=== PATIENT | male | born 1935 | race Caucasian/White ===

== ENCOUNTER 2016-12-27 11:13 | Inpatient (IN) | payer MEDICARE ==
[~2016-12-27] VITALS: Ht 190.5 cm; Wt 89.1 kg
--- NOTE | ~2016-12-27 | CO ---
Unit #: [id number] #: [id number] Patient: YANG VILLEGAS [id number] [address] [address] [id number] I MR#: [id number] NAME: YANG VILLEGAS ROOM: 313 Age: 81 Sex: M Admission Date: 12/29/2016 : 1935 Attending Physician: Angely Bolden M.D. Primary Care Physician: Kiran Frankel M.D. Consultation Date: 12/31/2016 CONSULTATION REPORT REASON FOR CONSULTATION Positive blood cultures. HISTORY OF PRESENT ILLNESS Mr. Villegas is a pleasant 81-year-old male with a past medical history significant for hypertension, hyperlipidemia, CVA, benign prostatic hypertrophy, peripheral arterial disease and chronic kidney disease who is being admitted for complaints of lower extremity weakness and tenderness, which has happened for the past week. States he has had more trouble walking while he was at home. Says that he had issues with his legs before in the past with swelling. Denies any gout or any previous surgical interventions to his legs. We are now being consulted for positive blood cultures with gram-positive cocci. The patient has currently been started on vancomycin. He was noted to have fever of 101.3 on the 6th. Fever seems to have resolved, and the patient is now with low-grade temps around 100 to 99.7. He is alert and oriented and clinically stable at this time. PAST MEDICAL HISTORY Significant for hypertension, hyperlipidemia, cerebrovascular accident x2, BPH, peripheral arterial disease, chronic kidney disease, carotid endarterectomy in the past. PAST SURGICAL HISTORY Left inguinal hernia repair, carotid endarterectomy, hydrocelectomy. SOCIAL HISTORY The patient denies any alcohol, tobacco or illicit drug use. FAMILY HISTORY Noncontributory. REVIEW OF SYSTEMS All negative except for those stated in the HPI. PHYSICAL EXAM GENERAL: Awake, alert and oriented. Sitting up in bed. VITAL SIGNS: Temperature is 99.7, heart rate 69, respirations 18, blood pressure 145/81. NEUROLOGIC: Alert and oriented. CARDIOVASCULAR: Regular rate. PULMONARY: Clear to auscultation. Nonlabored. GI: Soft, nontender. Positive bowel sounds. SKIN: Bilateral lower extremity erythema and edema, tenderness. No open Unit #: [id number] #: [id number] Patient: YANG VILLEGAS wounds. Dry, flaky toes. PERIPHERAL IV ACCESS: Clean, dry and intact. DIAGNOSTIC STUDIES DIAGNOSTIC IMAGES: Chest x-ray with cardiomegaly, elevation of left hemidiaphragm with atelectasis of the left base. Ultrasound of the kidneys - Echogenic likely reflecting some chronic medical renal disease. LABORATORY DATA: Chemistry - Glucose is 112, BUN 37, creatinine 1.4, sodium 137, potassium 4.2. Hematology - No CBC today. Yesterday's white count was 8.4. Blood cultures from December 30 drawn 15 minutes apart - Two of two with gram-positive cocci in clusters. Pending identification and sensitivity. ASSESSMENT 1. Gram-positive bacteremia versus contamination of unclear source. 2. Possibly bilateral lower extremity cellulitis. PLAN At this time will continue vancomycin. Will follow up identifications of cultures, as well as sensitivities. Unsure of source for bacteremia. The patient is without a pacemaker, a PICC line or a central line or any type of artificial devices, and he has no past surgical history, although bacteremia could be from possible lower extremity cellulitis. Will check a bilateral lower extremity venous Doppler ultrasound to rule out any type of DVT. Will ask pharmacy to continue dosing vancomycin. Will monitor creatinine closely while the patient is on vancomycin and will follow up on cultures. Temps seem to have improved and patient with no leukocytosis. Further recommendations dependent on the patient's course. As well, the patient will be seen by Dr. Carreon for further plan. Thank you for the consultation. Dictated by... Clara Wolfe APRN for Dea Wright/cameron TD: 12/31/2016 11:04 JOB #: [id number] CONSULTATION REPORT Page 1 of 1 X X CONSULTATION REPORT
--- NOTE | ~2016-12-27 | OR ---
Unit #: [id number] #: [id number] Patient: YANG VILLEGAS [id number] [address] [address] [id number] I MR#: [id number] NAME: YANG VILLEGAS ROOM: [facility] Date of Procedure: 01/01/2017 Admission Date: 12/29/2016 Surgeon: Ronnell Shahid M.D. : 1935 Attending Physician: Angely Bolden M.D. Primary Care Physician: Kiran Frankel M.D. OPERATIVE REPORT PRIMARY CARE PHYSICIAN Kiran Frankel M.D. PREOPERATIVE DIAGNOSES The patient has presented history of oropharyngeal dysphagia. His fairly modified swallow evaluation suggest possible matter in the esophagus. The patient has lot of pooling of food and secretions in his pharynx and vallecula on swallow evaluation. PROCEDURES PERFORMED 1. Upper gastrointestinal endoscopy and biopsy. 2. Endoscopic placement of Dobbhoff tube. POSTOPERATIVE DIAGNOSES 1. There was grade 1 distal erosive esophagitis. 2. Mild prepyloric antral nonerosive gastritis. 3. There was lot of pooling of secretions in vallecula and requiring frequent oropharyngeal suction. 4. 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 5. A Dobbhoff diverticulum was placed with its tip of the tube in the antrum confirmed endoscopically after some difficulty due to the Zenker's. RECOMMENDATIONS The patient will need a more permanent modality of enteral feeding and a PEG tube is indicated. In the meantime until we get the permit from the family and POA, he can be fed via the Dobbhoff tube. SEDATION USED MAC. DESCRIPTION OF PROCEDURE Following detailed explanation of the potential risks and complications of an upper endoscopy, namely perforation, bleeding, and complications related to sedation, the patient was brought to GI lab and laid in the supine position with head of the bed elevated. Lubricated tip of the Olympus video upper endoscope was passed through the bite block into the proximal esophagus under direct vision. The entire esophageal mucosa was examined and the patient was noted to have grade 1 distal erosive esophagitis. The scope was then advanced into the gastric cavity and the latter was insufflated. Mucosa of the fundus, body, and antrum was examined. Mild prepyloric antral erythema was noted indicating antral gastritis. Pylorus was intubated with visualization of the normal Unit #: [id number] #: [id number] Patient: YANG VILLEGAS duodenal bulb and second and third part of the duodenum. Upon withdrawal and retroflexion, incisura, cardia, and greater curve examined and biopsy obtained from the antrum for CLOtest. The scope was then withdrawn in the distal esophagus. The entire esophageal mucosa was examined all the way up to pharynx. The patient was noted to have extensive pooling of secretions in the both vallecula and posterior pharynx. These required frequent oropharyngeal suction during the procedure. A whiteboard Dobbhoff tube was then placed endoscopically into the antrum. There was some difficulty encountered and placing the tube because of presence of Zenker diverticulum. The tube was then anchored to the external nares. The scope was withdrawn. The patient returned to the recovery area. He tolerated the procedure without any postprocedure complications. Dictated by... Dea Ghosh TD: 01/01/2017 11:32 JOB #: [id number] OPERATIVE REPORT Page 1 of 1 X Ronnell Shahid MD X PROCEDURE OPERATIVE NOTE
--- NOTE | ~2016-12-27 | CO ---
Unit #: [id number] #: [id number] Patient: YANG VILLEGAS [id number] [address] [place], [place] [address] [id number] I MR#: [id number] NAME: YANG VILLEGAS ROOM: 313 Age: 81 Sex: M Admission Date: 12/29/2016 : 1935 Attending Physician: Angely Bolden M.D. Primary Care Physician: Kiran Frankel M.D. Consultation Date: 12/30/2016 CONSULTATION REPORT REASON FOR CONSULTATION Oropharyngeal dysphagia. HISTORY OF PRESENT ILLNESS The patient has been found to have a significant problem with pooling of food in the (1) posterior pharynx and also a suggestion of a narrow esophagus on a modified barium swallow. He was, in fact, admitted 3 days ago with weakness of lower extremities and is still quite frail and weak. In fact, on examination he seems somewhat forgetful. PAST MEDICAL HISTORY His past medical history is significant for history of stroke. In fact, the patient was admitted in July of 2014 with rhabdomyolysis and CVA. He also has a history of hypertension, hyperlipidemia, stroke in the left middle cerebral artery territory, peripheral arterial disease status post carotid endarterectomy, chronic kidney disease stage 3 and benign prostatic hypertrophy. The patient has also been found to be in atrial fibrillation in the hospital. PAST SURGICAL HISTORY Previous surgeries included carotid endarterectomy, surgery for a hydrocele, as well as left inguinal hernia repair. SOCIAL HISTORY He does not smoke, drink alcohol and uses a walker to ambulate. His POA is Lashaun Skelley. CURRENT MEDICATIONS Norvasc, Cozaar, Flomax, Colace, vitamin D3. ALLERGIES Atorvastatin. REVIEW OF SYSTEMS A detailed review of organ systems does not reveal any recent weight loss. No history of fevers, chills or rigors. Also, there is no history of syncope. There is history of weakness of lower extremities. No history of cough, expectoration or hemoptysis. No history of dysuria, hematuria or polyuria. No focal seizures. No history of overt GI bleed in the form of the hematemesis, melena or hematochezia. PHYSICAL EXAMINATION GENERAL: On examination, he is awake and somewhat lethargic. He is able to respond to all commands but is quite slow (2) . Unit #: [id number] #: [id number] Patient: YANG VILLEGAS VITAL SIGNS: His temperature is 99.8, pulse 80 per minute, respiratory rate 18, blood pressure 148/76. He weighs 198 pounds. Baseline weight is about the same. GENERAL: He has mild pallor, there being no icterus, lymphadenopathy. Grade 1 pitting peripheral edema. CARDIOVASCULAR: Examination reveals atrial fibrillation. RESPIRATORY: Auscultation of the lungs - Bilaterally diminished with good air entry. ABDOMEN: The abdomen is soft, obese and nontender. The liver and spleen are not palpable. Bowel sounds are normal. DIAGNOSTIC STUDIES LABORATORY: Lab evaluation shows a normal white count of 8. Hemoglobin is 11 with normochromic, normocytic indices. Platelet count is 134. INR is 1.2. Serum chemistry shows a BUN and creatinine of 31 and 1.6. Sodium and potassium are normal. Albumin is 3.3, and LFTs are normal. The patient's speech and swallow evaluation suggests the possibility of pooling of food in the pharynx, most likely from oropharyngeal dysphagia, as well as possibility of esophageal stricture or reflux. CLINICAL IMPRESSION 1. Patient with oropharyngeal dysphagia and possibly mechanical dysphagia as a result of reflux or stricture. Needs a diagnostic endoscopy. 2. Background problems with atrial fibrillation, stroke, hypertension and hyperlipidemia. An upper endoscopy will be performed later today. The pros and cons of the procedure and potential risks and complications were discussed with the patient, and he was reassured. Thank you for asking me to see this pleasant gentleman. I appreciate the consult. Dictated by... Dea Ghosh/cameron TD: 12/31/2016 14:24 JOB #: [id number] CONSULTATION REPORT Page 1 of 1 X Ronnell Shahid MD CONSULTATION REPORT
--- NOTE | ~2016-12-27 | US140 ---
[facility] A Service of [facility] RADIOLOGY TEXT RESULTS PATIENT: YANG VILLEGAS LOCATION: [facility] 313-01 : [birth year] UNIT #: [id number] AGE: [address]: Angely Bolden MD SEX: M ORDER DR: [id number] [facility] [address] [place], [place] [address] [id number] I MR#: [id number] Acc #: [id number] NAME: YANG VILLEGAS : 1935 SEX: M STUDY DATE/TIME: 01/02/2017 14:44 UNIT: [address] ROOM: [facility] STUDY DESCRIPTION: US UE Veins Unilat or Ltd Stdy Attending Physician: Angely Bolden M.D. Ordering Physician: Angely Bolden M.D. Primary Care Physician: Kiran Frankel M.D. MEDICAL IMAGING REPORT This report is preliminary unless electronic signature is present EXAM Right upper extremity venous duplex, 01/02/2017 HISTORY Right upper extremity pain and edema for 3 days. Evaluate for deep vein thrombosis. FINDINGS Eaton-scale images of the right upper extremity were obtained as well as Doppler waveform spectral analysis and color flow Doppler imaging. There is normal blood flow and compressibility in the right internal jugular vein as well as the right subclavian, axillary, brachial, cephalic and basilic veins. There is no evidence of deep vein thrombosis in the right upper extremity. IMPRESSION Negative right upper extremity venous duplex with no evidence of deep vein thrombosis. Dictated by... Mike Burns M.D. THIS IS AN ELECTRONICALLY VERIFIED REPORT Mike Burns M.D. at 01/03/2017 7:18 AM JSE/allen TD: 01/02/2017 21:03 JOB #: [id number] MEDICAL IMAGING REPORT Page 1 of 1 COPY
--- NOTE | ~2016-12-27 | EKG ---
PATIENT: YANG VILLEGAS UNIT #: [id number] Ventricular Rate: 137 BPM Atrial Rate: 159 BPM QRS Duration: 82 ms Q-T Interval: 294 ms QTC Calculation(Bezet): 443 ms Calculated R Hastings: 41 degrees Calculated T Hastings: 33 degrees Diagnosis Line: Atrial fibrillation with rapid ventricular Diagnosis Line: response Diagnosis Line: Abnormal ECG Diagnosis Line: When compared with ECG of 28-JUL-2014 16:59, Diagnosis Line: Atrial fibrillation has replaced Sinus rhythm Diagnosis Line: ST no longer elevated in Inferior leads Diagnosis Line: Nonspecific T wave abnormality no longer evident Diagnosis Line: in Lateral leads Diagnosis Line: Confirmed by CANELO RUTHERFORD MD ([id number]) on 12/31/2016 Diagnosis Line: 10:53:57 PM INTERPRETING MD: KRISH LANE
--- NOTE | ~2016-12-27 | CO ---
Unit #: [id number] #: [id number] Patient: YANG VILLEGAS [id number] [address] [place], [place] [address] [id number] I MR#: [id number] NAME: YANG VILLEGAS ROOM: 313 Age: 81 Sex: M Admission Date: 12/27/2016 : 1935 Attending Physician: Angely Bolden M.D. Primary Care Physician: Kirna Frankel M.D. Consultation Date: 12/28/2016 CONSULTATION REPORT REASON FOR CONSULTATION Acute renal failure. HISTORY OF PRESENT ILLNESS This is an 81-year-old white male with a history of CKD, 3. His baseline creatinine is approximately 1.3. He is followed closely by my partner, Dr. Rey Teresa. The patient has a history of CVA approximately 2 years ago. Since that time, he has had some weakness, however, he notes that his weakness has dramatically worsened over the past couple of weeks, mainly of the bilateral legs. He states that when he is having just to stand or use his legs, they feel very weak and they are unable to support his weight. He describes it "wobbly." He has not had any falls. He has no paresthesias or pain in the extremities. No coldness or temperature change of extremities. No recent illness. Nothing makes the weakness better and nothing makes it worse. His blood pressure has been at goal. At the time of arrival, he was found to have acute renal failure with a creatinine of 1.8. He has been hydrated overnight and his creatinine has now improved to 1.5. PAST MEDICAL HISTORY 1. CKD, stage 3 with a baseline creatinine of 1.3. 2. CVA in 2014. 3. Hypertension. 4. Hyperlipidemia. 5. Peripheral artery disease. HOME MEDICATIONS Norvasc, Cozaar, Flomax, Colace, vitamin D3. ALLERGIES Atorvastatin. SOCIAL HISTORY He does not smoke or drink. He lives with a friend. REVIEW OF SYSTEMS No fevers, chills, or night sweats. No syncope or seizure like activity. No chest pain or palpitations. No shortness of air, cough, congestion, or sputum production. Mild dyspnea on exertion. No abdominal pain, nausea, vomiting, diarrhea, melena, bright red blood per rectum. No dysuria, urgency, or frequency. No new rashes. No joint pain. No polyuria, no polydipsia. PHYSICAL EXAMINATION Unit #: [id number] #: [id number] Patient: YANG VILLEGAS VITAL SIGNS: Blood pressure 141/79, heart rate of 80, respiratory rate of 18, he is afebrile. GENERAL: He is alert and oriented, pleasant, well kempt, in no acute distress. HEENT: Extraocular movements are intact. No scleral icterus. NECK: Supple with no masses and no JVD noted. HEART: Regular S1, S2 with a very slight systolic ejection murmur heard at the left sternal border. No rubs or gallops appreciated. LUNGS: Clear to auscultation bilaterally with good air movement. No rales, rhonchi, or wheezes appreciated. ABDOMEN: Soft, nontender, nondistended with normal bowel sounds. EXTREMITIES: Warm to touch. No edema. They are dry with intact pulses. DIAGNOSTIC STUDIES LABORATORY RESULTS: Reviewed, white count is 7, hemoglobin is 10, platelets 132. Sodium 136, potassium 4.7, bicarb 28, creatinine 1.5, calcium 8.3. IMAGING STUDIES: Chest x-ray shows left hemidiaphragm elevation, which is chronic and some mild atelectasis. ASSESSMENT 1. Acute kidney injury. 2. Chronic kidney disease, stage 3. 3. Weakness. 4. Hypertension. 5. Anemia of chronic disease. DISCUSSION AND PLAN At this time, we will continue to hydrate him as he does tolerate greater than 50% of his dinner. We will go ahead and discontinue his IV fluids to prevent from any overload. We will check a baseline renal ultrasound. We will continue to monitor electrolytes closely and recommend we will dose all medications to GFR less than 60. For his leg pain, we will check a folate and B12. We would also consider Vascular Surgery consult if his weakness continues, to rule out any vascular insufficiency as he does have a history of peripheral artery disease. For his anemia, we will go ahead and screen for iron deficiency and treat with Aranesp and Venofer as indicated. We will continue to monitor electrolytes and volume closely. Thank you again for this referral. Dictated by... Ceci Campo M.D. AMANDA/diego TD: 12/29/2016 02:13 JOB #: [id number] Unit #: [id number] #: [id number] Patient: YANG VILLEGAS CONSULTATION REPORT Page 1 of 1 X Ceci Campo MD CONSULTATION REPORT
--- NOTE | ~2016-12-27 | CR72 ---
[facility] A Service of [facility] RADIOLOGY TEXT RESULTS PATIENT: YANG VILLEGAS LOCATION: [facility] 313-01 : [birth year] UNIT #: [id number] AGE: [address]: Lulu Sun MD SEX: M ORDER DR: [id number] [facility] [address] [facility] [place], [place] [address] [id number] MR#: [id number] Acc #: [id number] NAME: YANG VILLEGAS : 1935 SEX: M STUDY DATE/TIME: 12/27/2016 12:39 UNIT: [facility] ROOM: STUDY DESCRIPTION: CR Chest Single View Portable Attending Physician: Jese Manning M.D. Ordering Physician: Jese Manning M.D. Primary Care Physician: Kiran Frankel M.D. MEDICAL IMAGING REPORT This report is preliminary unless electronic signature is present EXAM Frontal chest, 12/27/2016. INDICATION 81-year-old male with shortness of air and bilateral leg pain and weakness for 2 weeks. History of stroke. "Leaky valve." TECHNIQUE Frontal chest compared with 07/28/2014. FINDINGS Cardiac silhouette stable. The aorta is tortuous. Vascularity is within normal limits. There is some atelectasis in the right lung base. Chronic elevation of the left hemidiaphragm and volume loss on the left. No pneumothorax. IMPRESSION Chronic elevation of the left hemidiaphragm with associated volume loss and atelectasis in the left lung base. Mild right basilar atelectasis. No significant change. Dictated by... Isauro Hampton M.D. THIS IS AN ELECTRONICALLY VERIFIED REPORT Isauro Hampton M.D. at 12/27/2016 5:17 PM César TD: 12/27/2016 15:22 JOB #: [id number] [facility] A Service [facility] RADIOLOGY TEXT RESULTS PATIENT: YANG VILLEGAS LOCATION: [facility] 313-01 : [birth year] UNIT #: [id number] AGE: [address]: Lulu Sun MD SEX: M ORDER DR: MEDICAL IMAGING REPORT Page 1 of 1 COPY
--- NOTE | ~2016-12-27 | OR ---
Unit #: [id number] #: [id number] Patient: YANG VILLEGAS [id number] [address] [place], [place] [address] [id number] I MR#: [id number] NAME: YANG VILLEGAS ROOM: [facility] Date of Procedure: 01/03/2017 Admission Date: 12/29/2016 Surgeon: Ronnell Shahid M.D. : 1935 Attending Physician: Angely Bolden M.D. Primary Care Physician: Kiran Frankel M.D. OPERATIVE REPORT PRIMARY CARE PHYSICIAN Kiran Frankel M.D. PREOPERATIVE DIAGNOSIS High-grade oropharyngeal dysphagia. PROCEDURES PERFORMED Upper gastrointestinal endoscopy and a PEG placement. POSTOPERATIVE DIAGNOSIS Uncomplicated placement of the PEG tube. RECOMMENDATIONS Please see the chart for postoperative care of the PEG site and feeding instructions. SEDATION USED MAC. DESCRIPTION OF PROCEDURE Following detailed explanation of the potential risks and complications of an upper endoscopy and a PEG placement namely perforation, bleeding, and complication related to sedation, the patient was brought to GI lab and laid in the supine position with head of the bed elevated. Sedation using MAC was given. Lubricated tip of the Olympus video upper endoscope was passed through the bite block into the proximal esophagus under direct vision. The entire esophageal mucosa was examined and appeared normal. Z-line was nicely demarcated, there being no esophagitis or hiatus hernia. The scope was then advanced into the gastric cavity and the latter was insufflated. Mucosa of the fundus, body, and antrum was examined and appeared unremarkable. Pylorus was intubated with visualization of the normal duodenal bulb and second and third part of the duodenum. Upon withdrawal and retroflexion; incisura, cardia, and greater curve was examined and no additional findings were noted. Using transillumination and finger indentation, a prospective PEG site was then identified. The area was cleaned and draped with Betadine and 1% lidocaine infiltrative anesthesia was given. A small stab incision was made with a scalpel. Using Seldinger technique, guidewire was placed in the gastric cavity. The latter was then grasped using a polypectomy snare and brought out through the oral cavity. A 20-Vietnamese PEG tube was reloaded over the guidewire and brought out through the stab incision. Appropriate feeding attachments and securing device were applied. Relook endoscopy showed Unit #: [id number] #: [id number] Patient: YANG VILLEGAS excellent position in the inner mushroom of the PEG tube. The scope was withdrawn and the patient returned to the recovery area. He tolerated the procedure without any postprocedure complications. Dictated by... Dea Ghosh/diego TD: 01/03/2017 13:53 JOB #: [id number] Maggie Brewer M.D. OPERATIVE REPORT Page 1 of 1 X Ronnell Shahid MD X PROCEDURE OPERATIVE NOTE
--- NOTE | ~2016-12-27 | CR113 ---
[facility] A Service of [facility] RADIOLOGY TEXT RESULTS PATIENT: YANG VILLEGAS LOCATION: [facility] : 33 UNIT #: [id number] AGE: [address]: Angely Bolden MD SEX: M ORDER DR: [id number] [place] [id number] [facility]. [place], [place] [address] [id number] I MR#: [id number] Acc #: [id number] NAME: YANG VILLEGAS : 1935 SEX: M STUDY DATE/TIME: 01/03/2017 10:57 UNIT: [address] ROOM: [facility] STUDY DESCRIPTION: CR Finger 2 View 4Th Rt Attending Physician: Angely Bolden M.D. Ordering Physician: Angely Bolden M.D. Primary Care Physician: Kiran Frankel M.D. MEDICAL IMAGING REPORT This report is preliminary unless electronic signature is present EXAM Right fourth finger, 2 views, 01/03/2017, 1057 hours. CLINICAL HISTORY Patient has had CVA with weakness and inability to fully extend hand and fingers on the right. Patient has swelling and pain for 1 day with no known injury. COMPARISON None FINDINGS AP and lateral views of the fourth finger demonstrate diffuse soft tissue swelling with no fracture. There is mild spurring at the PIP and DIP joints consistent with osteoarthritis. 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 There is no fracture, foreign body or soft tissue gas. Dictated by... Michelle Mcneil M.D. THIS IS AN ELECTRONICALLY VERIFIED REPORT Michelle cMneil M.D. at 01/04/2017 3:27 PM JAIME/tricia TD: 01/03/2017 16:54 JOB #: [id number] [facility] A Service of [facility] RADIOLOGY TEXT RESULTS PATIENT: YANG VILLEGAS LOCATION: [facility] : 33 UNIT #: [id number] AGE: [address]: Angely Bolden MD SEX: M ORDER DR: MEDICAL IMAGING REPORT Page 1 of 1 COPY
--- NOTE | ~2016-12-27 | CR72 ---
[facility] A Service of [facility] RADIOLOGY TEXT RESULTS PATIENT: YANG VILLEGAS LOCATION: [facility] 313-01 : 33 UNIT #: [id number] AGE: [address]: Angely Bolden MD SEX: M ORDER DR: [id number] [facility] [address]. [place], [place] [address] [id number] I MR#: [id number] Acc #: [id number] NAME: YANG VILLEGAS. : 1935 SEX: M STUDY DATE/TIME: 01/03/2017 17:21 UNIT: [address] ROOM: [facility] STUDY DESCRIPTION: CR Chest Single View Portable Attending Physician: Angely Bolden M.D. Ordering Physician: Angely Bolden M.D. Primary Care Physician: Kiran Frankel M.D. MEDICAL IMAGING REPORT This report is preliminary unless electronic signature is present EXAM AP portable chest, 01/03/2017 at 1721. HISTORY Shortness of breath. Pneumonia. Symptoms began 1 month ago. COMPARISON AP portable chest 12/30/2016. FINDINGS There is asymmetric elevation of the left hemidiaphragm with probable passive left basilar atelectasis, but no definite acute airspace disease or consolidation is seen. Stable mild cardiac enlargement. No pleural effusion, pneumothorax, or acute osseous abnormalities are identified. IMPRESSION 1. Stable elevation left hemidiaphragm with passive left basilar atelectasis. 2. Stable mild cardiac enlargement. 3. No new or acute chest findings compared to 12/30/2016. Dictated by... Katherine Almendarez M.D. THIS IS AN ELECTRONICALLY VERIFIED REPORT Katherine Almendarez M.D. at 01/06/2017 8:38 AM LLH/jake TD: 01/04/2017 11:39 JOB #: [id number] MEDICAL IMAGING REPORT Page 1 of 1 COPY
--- NOTE | ~2016-12-27 | US84 ---
[id number] [facility] [address] [place], [place] [address] [id number] I MR#: [id number] Acc #: [id number] NAME: YANG VILLEGAS : 1935 SEX: M STUDY DATE/TIME: 12/31/2016 14:13 UNIT: C3A PCU ROOM: [facility] STUDY DESCRIPTION: US LE Veins Complete Naif Stdy Attending Physician: Angely Bolden M.D. Ordering Physician: Angely Bolden M.D. Primary Care Physician: Kiran Frankel M.D. MEDICAL IMAGING REPORT This report is preliminary unless electronic signature is present EXAM Bilateral lower extremity venous duplex, 12/31/2016 HISTORY Bilateral lower extremity pain for 2 years with lower extremity edema. Symptoms have worsened in the last 2 days. Evaluate for deep vein thrombosis. TECHNIQUE Venous ultrasound examination of both lower extremities was performed using grayscale, spectral Doppler and color flow Doppler imaging. FINDINGS The examination is negative. There is no evidence of deep venous thrombus from the groin to the lower calf bilaterally. Visualized greater saphenous veins are also patent. IMPRESSION Negative examination. No evidence of lower extremity deep venous thrombosis. Dictated by... Mike Burns M.D. THIS IS AN ELECTRONICALLY VERIFIED REPORT Mike Burns M.D. at 01/01/2017 2:37 PM JES/allen TD: 12/31/2016 20:58 JOB #: [id number] MEDICAL IMAGING REPORT Page 1 of 1 COPY
--- NOTE | ~2016-12-27 | DS ---
Unit #: [id number] #: [id number] Patient: YANG VILLEGAS [id number] [address] [place], [place] [address] [id number] I MR#: [id number] NAME: YANG VILLEGAS ROOM: 313 Age: 81 Sex: M Admission Date: 12/29/2016 : 1935 Discharge Date: 01/04/2017 Attending Physician: Angely Bolden M.D. Primary Care Physician: Kiran Frankel M.D. DISCHARGE SUMMARY PRINCIPAL DISCHARGE DIAGNOSES 1. Acute kidney injury, improved. 2. History of chronic kidney disease. 3. Bacteremia with Staph coagulase negative, most likely contamination. 4. PEG placement. 5. Atrial fibrillation with rapid ventricular response, now in normal sinus rhythm. 6. Bilateral lower extremity weakness. 7. B12 deficiency. 8. Right hand arthritis. HOSPITAL COURSE This is an 81-year-old male with multiple medical problems who was admitted on 12/27/2016 with lower extremity weakness. In the emergency room, on his labs he was found to be in acute renal failure with creatinine of 1.8, temperature of 99.3. He was treated with IV antibiotics with vancomycin and cefazolin. Seen by the infectious disease. He was also seen in renal consult by Dr. Padilla. He had a GI consult with Dr. Shahid for a PEG placement due to the difficulty in swallowing and eating. He had bacteremia with coagulase negative Staph which was found out to be contamination. He had atrial fibrillation with rapid ventricular rate, seen by the cardiology. He is in normal sinus rhythm. The patient is being discharged home. The patient is stable at this time to be discharged home for further management. CONSULTATION 1. Cardiology - Dr. Barajas. 2. ID - Dr. aCrreon. 3. GI - Dr. Shahid. PROCEDURE PEG placement. DISCHARGE MEDICATIONS 1. Eliquis 2.5 mg twice daily. 2. Amlodipine 5 mg daily. 3. Metoprolol 50 mg twice daily. 4. Colace 200 mg twice daily. 5. Chlorthalidone 12.5 mg daily. 6. Acetaminophen p.r.n., 650 q.6. 7. Flomax 0.4 mg p.o. at bedtime. 8. Losartan 25 mg daily. 9. Vitamin D 5000 units daily. 10. Vitamin B12 1000 mcg daily. Unit #: [id number] #: [id number] Patient: YANG VILLEGAS 11. Free water via PEG 200 mL q.4. Discharge to [facility]. CONDITION AT DISCHARGE Stable. Dictated by... Dea Russ/marcelino TD: 01/04/2017 12:14 JOB #: [id number] DISCHARGE SUMMARY Page 1 of 1 X Rk Gonzales MD X DISCHARGE SUMMARY
--- NOTE | ~2016-12-27 | US77 ---
[facility] A Service [facility] RADIOLOGY TEXT RESULTS PATIENT: YANG VILLEGAS LOCATION: [facility] 313- : 33 UNIT #: [id number] AGE: [address]: Angely Bolden MD SEX: M ORDER DR: [id number] [facility] [address]. [place], [place] [address] [id number] I MR#: [id number] Acc #: [id number] NAME: YANG VILLEGAS. : 1935 SEX: M STUDY DATE/TIME: 12/29/2016 9:16 UNIT: [address] ROOM: [facility] STUDY DESCRIPTION: US Kidney Bilateral Complete Attending Physician: Angely Bolden M.D. Ordering Physician: Ceci Campo M.D. Primary Care Physician: Kiran Frankel M.D. MEDICAL IMAGING REPORT This report is preliminary unless electronic signature is present EXAM Renal ultrasound INDICATION Acute kidney injury. TECHNIQUE Eaton-scale and color Doppler sonographic images were obtained through the kidneys and bladder. FINDINGS I do think the kidneys appear somewhat echogenic likely reflecting chronic medical renal disease, although there is no cortical thinning. No hydronephrosis is seen on either side. No solid masses are identified although the patient is noted to have a simple-appearing right renal cyst measuring up to 5.1 x 6.4 x 5.7 cm which is probably not significantly changed when compared to June 2015. Bladder appears unremarkable. IMPRESSION 1. I think overall the patient's kidneys appear somewhat echogenic likely reflecting some chronic medical renal disease. However, no cortical thinning or hydronephrosis is seen. 2. Right renal cyst. Dictated by... Alexa Tesfaye M.D. THIS IS AN ELECTRONICALLY VERIFIED REPORT Alexa Tesfaye M.D. at 12/29/2016 10:25 AM LI/anton [facility] A Service [facility] RADIOLOGY TEXT RESULTS PATIENT: YANG VILLEGAS LOCATION: [facility] 313-01 : 33 UNIT #: [id number] AGE: [address]: Angely Bolden MD SEX: M ORDER DR: TD: 12/29/2016 09:45 JOB #: [id number] MEDICAL IMAGING REPORT Page 1 of 1 COPY
--- NOTE | ~2016-12-27 | CR71 ---
[facility] A Service of [facility] RADIOLOGY TEXT RESULTS PATIENT: YANG VILLEGAS LOCATION: [facility] 313-01 : 33 UNIT #: [id number] AGE: [address]: Angely Bolden MD SEX: M ORDER DR: [id number] [facility] [address] [place], [place] [address] [id number] I MR#: [id number] Acc #: [id number] NAME: YANG VILLEGAS : 1935 SEX: M STUDY DATE/TIME: 12/30/2016 6:51 UNIT: [address] ROOM: [facility] STUDY DESCRIPTION: CR Chest Single View Attending Physician: Angely Bolden M.D. Ordering Physician: Maggie Brewer M.D. Primary Care Physician: Kiran Frankel M.D. MEDICAL IMAGING REPORT This report is preliminary unless electronic signature is present EXAM Portable chest 12/30/2016 HISTORY Cough, fever, leg weakness, shortness of breath, benign essential hypertension beginning 12/25/2016. FINDINGS There is mild cardiac enlargement. There is elevation of the left hemidiaphragm with atelectasis at the lung bases. Lungs are otherwise clear. There are no pleural effusions. IMPRESSION Cardiomegaly. Elevation left hemidiaphragm with atelectasis at the lung bases. No change compared with 12/27/2016. Dictated by... Mike Burns M.D. THIS IS AN ELECTRONICALLY VERIFIED REPORT Mike Burns M.D. at 12/31/2016 7:13 AM JES/anton TD: 12/30/2016 07:15 JOB #: [id number] MEDICAL IMAGING REPORT Page 1 of 1 COPY
--- NOTE | ~2016-12-27 | A ---
[facility] Nutrition Therapy DATE: 01/01/17 Patient: YANG VILLEGAS Physician: TOREY Address: [facility] Room/Bed: [address] [place] [address], Zip: [place] [address] Admit Date: 12/29/16 Date of : 33 Height: 6 3 Weight: 198 90 NUTRITIONAL ASSESSMENT: REASON: PT SEEN FOR ENTERAL NUTRITION SUPPORT ASSESSMENT PT IS 81 Y.O. MALE ADMITTED FOR LEG WEAKNESS, AMS PMH: HTN, HLD, CVA X 2, PAD, BPH, CKD STAGE 3, AFIB Anthropometrics: 6'3", WT: 203# (PER PT) (92 KG), BMI: 25.4 Labs: GLU: 116, BUN: 39, ALB: 3.3, GFR: 55.6 Meds: NACL, VITAMIN D, COLACE, CYANOCOBALAMIN I/O & Bowel function: 40/900 Skin Integrity: CRUSTED DRY SKIN TO BLE & FEET; BLE CELLULITIS Estimated Nutrition Needs: 9812-3757 KCAL (20-25 KCAL/KG BW) 82-110 G PRO (0.9-1.2 G PRO/KG BW) FLUIDS CONSISTENT W/KCAL NEEDS OR MANAGE PER MD Assessment: CHART REVIEWED AND EVENTS NOTED. PT SEEN FOR ENTERAL NUTRITION SUPPORT. PT SLEEPY AT TIME OF VISIT REPORTING FAIR/GOOD PO INTAKE PRIOR TO ADMIT. FAMILY AT BEDSIDE REPORTS PT TO HAVE GOOD PO INTAKE AND APPETITE BUT NOTING PT WOULD CHOKE AND COUGH OCCASIONALLY AFTER EATING. PT AND FAMILY DENY PT HAS LOST ANY WEIGHT. NO WEIGHT LOSS NOTED IN [facility]. (WEIGHT GAIN NOTED). PER RN AND CHART, SPAR CAP BEVELER FOLLOWING AND DEEMS PT NOT APPROPRIATE FOR DIET ADVANCEMENT 2' RISK OF ASPIRATION & DYSPHAGIA NOTED. PLANS IN PLACE FOR EGD AND PEG PLACEMENT TODAY 01/01/17 AND THEN BEGIN ENTERAL NUTRITION SUPPORT OF JEVITY 1.2 @ 20 ML, ADVANCE TO GOAL RATE OF 50 ML/HR. PT ESTRELLITAENLY HAS DHT IN PLACE. PT AND FAMILY REPORTED NO DIET QUESTIONS AT THIS TIME. RD TO FOLLOW. SEE RECOMMENDATIONS BELOW. Dx: INADEQUATE ORAL INTAKE R/T RISK OF ASPIRATION, DYSPHAGIA NOTED AEB SPAR CAP BEVELER EVAL, FAMILY REPORT ABOVE, PEG TUBE PLACEMENT SCHEDULED, CURRENT NPO STATUS. Intervention: 1. NPO 2. PEG PLACEMENT SCHEDULED Monitoring, Evaluation and Goals: 1. ENTERAL NUTRITION; ONCE INITIATED, PROVIDE >80% TOTAL VOLUME X 24 HOURS 2. WEIGHTS; PROMOTE WEIGHT MAINTENANCE; PREVENT WEIGHT LOSS 3. LABS; WNL [facility] Nutrition Therapy DATE: 01/01/17 Patient: YANG Pérez BAKARI Physician: TOREY Address: [address] [place] [address] Room/Bed: [address] [place] [address], Zip: [place] [address] Admit Date: 12/29/16 Date of : 33 Height: 6 3 Weight: 198 90 MONITOR: -WEIGHTS -TF INITIATION/GOAL/RESIDUALS -SPAR CAP BEVELER RE-EVAL? Recommendations: 1. ONCE MEDICALLY FEASIBLE, BEGIN ENTERAL NUTRITION SUPPORT OF JEVITY 1.5 @ 20 ML/HR, ADVANCE 10 q 6 HOURS TO GOAL RATE OF 55 ML/HR -PROVIDES 1980 KCAL, 84 G PRO, 1003 ML FREE H20 ADD FREE H20 FLUSHES OF 200 ML q 4 HOURS TO MEET PT'S CURRENT ESTIMATED FLUID NEEDS OR MANAGE PER MD 2. MONITOR FOR SIGNS OF ENTERAL NUTRITION INTOLERANCE. ELEVATE HOB 30-45 DEGREES DURING ENTERAL NUTRITION ADMINISTRATION 2. CONTINUE SPAR CAP BEVELER TO FOLLOW FOR SAFE SWALLOW RE-EVALUATION RD WILL F/U PER PROTOCOL PT IS MODERATELY COMPROMISED Respectfully, HORACE SCHMITZ MS, RD, LD Food and Nutritional Services [facility] cc: client file
--- NOTE | ~2016-12-27 | CO ---
Unit #: [id number] #: [id number] Patient: YANG VILLEGAS [id number] [address] [address] [id number] I MR#: [id number] NAME: YANG VILLEGAS ROOM: 313 Age: 81 Sex: M Admission Date: 12/27/2016 : 1935 Attending Physician: Angely Bolden M.D. Primary Care Physician: Kiran Frankel M.D. Consultation Date: 12/30/2016 CONSULTATION REPORT REASON FOR CONSULTATION Atrial fibrillation. HISTORY OF PRESENT ILLNESS This is an 81-year-old male with a prior history of hypertension, hyperlipidemia, CVA, benign prostate hypertrophy, peripheral artery disease, chronic kidney disease, and an echo in August 2014 which showed a PFO, mild AVR, and LVEF of 50% to 55%. He was admitted to the hospital with lower extremity weakness, altered mental status, and acute kidney injury. Yesterday, he experienced atrial fibrillation with a rapid ventricular rate of 130s to 140s. He was started on Lopressor and Cardiology was consulted. Today, he is in normal sinus rhythm with a rate in the 80s. He denies chest pain or palpitations. PAST MEDICAL HISTORY 1. Hypertension. 2. Hyperlipidemia. 3. Cerebrovascular accident x2. 4. Benign prostatic hypertrophy. 5. Peripheral artery disease. 6. Chronic kidney disease. 7. Carotid endarterectomy in the past. 8. Echocardiogram in 2014 showed a PFO, mild AR, and LVEF of 50% to 55%. PAST SURGICAL HISTORY 1. Left inguinal hernia repair. 2. Carotid endarterectomy. 3. Hydrocelectomy. SOCIAL HISTORY Patient denies tobacco, alcohol use, or illicit drug use. He uses a walker to ambulate. His power of insurance attorney is Lashaunsegundo Ulloa. FAMILY HISTORY He denies a family history of premature coronary artery disease. REVIEW OF SYSTEMS A 10-point review of systems was conducted and is otherwise negative except for what was stated in the HPI. PHYSICAL EXAMINATION VITAL SIGNS: Temperature 101.3 max, heart rate 80, respiratory rate 18, and blood pressure 112/64. Unit #: [id number] #: [id number] Patient: YANG VILLEGAS HEENT: Head is atraumatic and normocephalic. Pupils are equal and reactive to light. Mucous membranes are moist and intact. NECK: Supple. No thyromegaly. No JVD. LUNGS: Clear to auscultation. Nonlabored respirations. CARDIOVASCULAR: S1 and S2, regular rate and rhythm. ABDOMEN: Soft, nontender, and nondistended. Bowel sounds are active. EXTREMITIES: Pulses are palpable. Trace pedal edema. No cyanosis. NEUROLOGIC: Arouses and answers questions appropriately. Moves all extremities equally and follows commands without difficulty. DIAGNOSTIC STUDIES LABORATORY: Sodium 135, potassium 4.3, chloride 101, BUN 31, creatinine 1.6, and glucose 133. Hemoglobin 11, hematocrit 32.4, white blood cell count 8.4, and platelets 134,000. Troponin less than 0.04 and TSH 1.43. IMAGING: Chest x-ray showed cardiomegaly with elevation of left hemidiaphragm and bibasilar atelectasis. No change compared with December 27, 2016. CARDIOLOGY: EKG showed atrial fibrillation with rapid ventricular rate of 134. ASSESSMENT 1. Paroxysmal atrial fibrillation with rapid ventricular rate, now normal sinus rhythm. 2. Bilateral lower extremity weakness. 3. Acute kidney injury. 4. Microcytic anemia. 5. Hypertension. 6. Hyperlipidemia. 7. History of cerebrovascular accident. 8. Peripheral artery disease, status post carotid endarterectomy. 9. Benign prostate hypertrophy. 10. Ejection fraction of 50% to 55% with mild aortic regurgitation and patent foramen ovale per echocardiogram in 2014. PLAN He is currently in normal sinus rhythm. We will continue the beta amos b.i.d. Add parameters to hold for heart rate less than 60 or systolic blood pressure less than 100. His CHADS2-VASc score is 6. He will need to be anticoagulated. In light of his renal insufficiency, we will start Eliquis 5 mg p.o. b.i.d. Echocardiogram results pending. We will discontinue his Aggrenox. Thank you for asking us to see this patient. We appreciate the consult. Dictated by... Lashaun Perez APRN for [employer] Dea Plascencia TD: 12/30/2016 15:51 JOB #: [id number] Unit #: [id number] #: [id number] Patient: YANG VILLEGAS CONSULTATION REPORT Page 1 of 1 X X CONSULTATION REPORT
--- NOTE | ~2016-12-27 | HP ---
Unit #: [id number] #: [id number] Patient: YANG VILLEGAS [id number] [address] [address] [id number] MR#: [id number] NAME: YANG VILLEGAS ROOM: Age: 81 Sex: M Admission Date: 12/27/2016 : 1935 Attending Physician: Jese Manning M.D. Primary Care Physician: Kiran Frankel M.D. HISTORY AND PHYSICAL CHIEF COMPLAINT Weak in the legs. HISTORY OF PRESENT ILLNESS The patient is an 81-year-old male with a past medical history of hypertension, hyperlipidemia, cerebrovascular accident, BPH and peripheral arterial disease, who presented to the emergency department for evaluation of the above. The patient states that he has been getting progressively weak in the legs. He states that it has possibly been going on for the past couple of days to a week or two. He states that his legs "get wobbly when he stands up." He denies any falls. He denies any numbness or tingling in the legs. No headache. No chest pain. No cough or cold symptoms. He has had decreased p.o. intake over the past 24 hours due to not being able to get around as well. He denies any vomiting or diarrhea. No abdominal pain. He does report urinary frequency. In the emergency department initial pulse and blood pressure were 83 and 138/65 respectively. Temperature is 99.3. Laboratory notable for BUN and creatinine of 35 and 1.8 respectively. Urinalysis is still pending. He was given a 500 cc normal saline bolus in the emergency department. He is being admitted to [facility] for evaluation and further treatment. PAST MEDICAL HISTORY 1. Admission to [facility] 07/28/2014 for altered mental status, cerebrovascular accident, rhabdomyolysis. 2. History of left MCA cerebral vascular accident. 3. Hypertension. 4. Hyperlipidemia. 5. BPH. 6. Peripheral arterial disease, status post carotid endarterectomy. 7. Chronic kidney disease, stage 3, followed by Dr. Head. 8. Echocardiogram 09/15/2014 showed patent foramen ovale, mild aortic regurgitation, ejection fraction 50%-55%. Dobbhoff flow pattern suggestive of impaired left ventricular relaxation. PAST SURGICAL HISTORY 1. Left inguinal hernia repair. 2. Hydrocelectomy. 3. Carotid endarterectomy. SOCIAL HISTORY Unit #: [id number] #: [id number] Patient: YANG VILLEGAS The patient lives with a friend. He denies tobacco or alcohol use. He has a walker that he does not typically use, but he has required the walker over the past couple of days. His code status is a full code. His [id number] is Lashaun Ulloa. REVIEW OF SYSTEMS A complete review of systems is negative except as indicated in the history of present illness. PHYSICAL EXAMINATION GENERAL: The patient is a male who is awake and alert, in no acute distress. VITALS: Temperature 99.3, pules 83, respiratory rate 22, blood pressure 138/65. Oxygen saturation is 97% on room air. HEENT: The head is atraumatic. Mucous membranes are moist. The left eye demonstrates exotropia which is not a new problem. NECK: Supple. Trachea midline. LUNGS: Clear to auscultation bilaterally with no increased work of breathing. HEART: Regular rate and rhythm. ABDOMEN: Soft and nontender with bowel sounds present in all four quadrants. EXTREMITIES: Nontender. There is trace pedal edema. PSYCHIATRIC: Mood and affect are normal. The patient is cooperative. SKIN: Hyperpigmentation of the leg. NEUROLOGIC: The patient is awake and alert. He follows commands. He is symmetrically weak, involving the lower extremities. Sensation is subjectively intact. He does have chronic hyperpigmentation, consistent with chronic venous stasis. DIAGNOSTIC STUDIES IMAGING: Chest x-ray shows bibasilar atelectasis. BNP 24. CMP is notable for BUN and creatinine of 35 and 1.8 respectively. CBC notable for hemoglobin and hematocrit of 11.5 and 34.9 respectively. ASSESSMENT The patient is an 81-year-old male with 1. Leg weakness. 2. Acute on chronic kidney disease. The patient's creatinine is 1.8 today and was 1.3 on 08/01/2014. The patient has stage 3 chronic kidney disease with a baseline creatinine around 1.3, followed by Dr. Head. He is on Cozaar, that could be contributing. 3. Macrocytic anemia. 4. Hypertension. 5. Hyperlipidemia. 6. History of left MCA cerebrovascular accident with BPH. 7. Peripheral arterial disease, status post carotid endarterectomy. PLAN 1. Admit for observation to intermediate level. 2. Healthy heart diet if passes bedside swallow. 3. Normal saline at 75 cc an hour. 4. Bedrest. 5. Fall precautions. 6. Physical therapy and occupational therapy to evaluate and treat. 7. Check urinalysis with culture and sensitivity. 8. Strict ins and outs. Unit #: [id number] #: [id number] Patient: YANG VILLEGAS 9. Consult Dr. Head regarding acute on chronic kidney disease. 10. Hold Cozaar. 11. Repeat labs in the morning. 12. SCDs for DVT prophylaxis. 13. Additional workup and consultants based on the above. Dictated by Lulu Sun M.D. JEFF/keturah TD: 12/27/2016 15:34 JOB #: [id number] HISTORY AND PHYSICAL Page 1 of 1 X Lulu Sun MD X HISTORY AND PHYSICAL
--- NOTE | ~2016-12-27 | EKG ---
PATIENT: YANG VILLEGAS UNIT #: [id number] Ventricular Rate: 72 BPM Atrial Rate: 72 BPM P-R Interval: 134 ms QRS Duration: 90 ms Q-T Interval: 378 ms QTC Calculation(Bezet): 413 ms P [employer]: 60 degrees Calculated R [employer]: 35 degrees Calculated T [employer]: 45 degrees Diagnosis Line: Normal sinus rhythm Diagnosis Line: Normal ECG Diagnosis Line: When compared with ECG of 29-DEC-2016 15:28, Diagnosis Line: (unconfirmed) Diagnosis Line: Sinus rhythm has replaced Atrial fibrillation Diagnosis Line: Vent. rate has decreased BY 65 BPM Diagnosis Line: Nonspecific T wave abnormality no longer evident Diagnosis Line: in Inferior leads Diagnosis Line: Confirmed by CANELO RUTHERFORD MD ([id number]) on 12/31/2016 Diagnosis Line: 11:36:22 PM INTERPRETING MD: KRISH [address]
[~2016-12-27 11:13] MED LIST: AMLODIPINE BESYL5 MG PO; ASPIRINEC PO; BENAZEPRIL HCL40 MG PO; BENAZEPRIL HCL5 M2 PO; CLOPIDOGREL75 MG PO; CRESTOR40 MG PO; DOCUSATE SODIU100 MG PO; ECOTRIN81 M1 PO; FAMOTIDINE20 M1 PO; FLOMAX0.4 M1 PO; HYDROCHLOROTHIA25 MG PO; LIDOCAINE 5% TOP; TYLENOL325 M1 PO; VESICARE5 MG PO; VITAMIN D35000 UNIT PO
[2016-12-27 12:56] LABS: BASOPHIL% 0.4 % (0-2.5); EOSINOPHIL% 0.2 % (0.0-7.0); HEMATOCRIT 34.9 % (38.0-50.0); HEMOGLOBIN 11.5 gm/dL (13.0-16.0); LYMPHOCYTE# 1.9 X10e3 (1.0-3.5); LYMPHOCYTE% 22.8 % (17.0-45.0); MEAN CELL VOLUME 100.1 FL (83-96); MEAN PLATELET VOLUME 11.8 FL (6.5-11.5); MONOCYTE# 1.1 X10e3 (0-1.0); MONOCYTE% 13.1 % (3.0-12.0); NEUTROPHIL# 5.4 X10e3 (1.5-7.1); NEUTROPHIL% 63.5 % (40-75); PLATELET COUNT 140 X10e3 (140-420); RED BLOOD COUNT 3.49 X10e (3.90-5.60); RED CELL DISTRIBUTION WIDTH 14.7 % (11.0-15.5); WHITE BLOOD COUNT 8.4 X10e3 (4.0-10.5)
[2016-12-27 12:57] LABS: DIFF IND NO
[2016-12-27 13:20] LABS: ALBUMIN SERUM 3.9 g/dL (3.5-5.0); BILIRUBIN, DIRECT 0.3 mg/dL (0.0-0.2); BILIRUBIN,INDIRECT 1.4 mg/dL (0.0-0.9); BILIRUBIN,TOTAL 1.7 mg/dL (0.2-2.0); BUN/CREATININE RATIO 19.44; CALCIUM SERUM 8.8 mg/dL (8.4-10.2); CREATININE SERUM 1.8 mg/dL (0.6-1.4); POTASSIUM 4.8 mmol/L (3.5-5.1); PROTEIN TOTAL SERUM 7.1 g/dL (6.0-8.3)
[2016-12-27] MEDS ORDERED: COZAAR25 MG PO (14:23)
[2016-12-27] MEDS ORDERED: FLOMAX0.4 M1 PO (14:23)
[2016-12-27] MEDS ORDERED: PRILOSEC PO (14:23)
[2016-12-27] MEDS ORDERED: VITAMIN D35000 UNI1 PO (14:23)
[2016-12-27] MEDS ORDERED: DOCUSATE SODIU100 MG PO (14:23)
[2016-12-27] MEDS ORDERED: NORVASC PO (14:23)
[2016-12-27] MEDS ORDERED: AGGRENOX PO (14:24)
[2016-12-27] MEDS ORDERED: PRAVACHOL PO (14:24)
[2016-12-27] MEDS ORDERED: LASIX20 MG PO (14:24)
[2016-12-27 17:00] LABS: PHOSPHOROUS 3.3 mg/dL (2.5-4.6)
[2016-12-27 17:17] LABS: URINE APPEARANCE CLEAR; URINE BILIRUBIN NEG (NEG); URINE BLOOD TRACE (NEG); URINE COLOR YELLOW; URINE GLUCOSE NEG (NEG); URINE KETONE NEG (NEG); URINE LEUKOCYTE ESTERASE NEG (NEG); URINE NITRATE NEG (NEG); URINE PROTEIN TRACE (NEG); URINE SPECIFIC GRAVITY 1.012 (1.003-1.035)
[2016-12-27 17:19] LABS: URBCS1 AUWI 0-2 /[HPF] (0-2); URINE BACTERIA AUWI NEG (NEGATIVE); URINE SQUAMOUS EPITHELIAL CELL NONE SEEN /[HPF]; UWBCS1 AUWI 0-2 (0-5)
[2016-12-28 04:54] LABS: BASOPHIL% 0.2 % (0-2.5); EOSINOPHIL% 0.4 % (0.0-7.0); HEMOGLOBIN 10.7 gm/dL (13.0-16.0); LYMPHOCYTE# 1.7 X10e3 (1.0-3.5); LYMPHOCYTE% 23.5 % (17.0-45.0); MEAN CELL VOLUME 100.2 FL (83-96); MEAN CORPUSCULAR HEMOGLOBIN 33.4 PG (28-34); MEAN CORPUSCULAR HGB CONC 33.3 g/dL (30-36); MEAN PLATELET VOLUME 11.8 FL (6.5-11.5); MONOCYTE# 0.8 X10e3 (0-1.0); MONOCYTE% 11.9 % (3.0-12.0); NEUTROPHIL# 4.5 X10e3 (1.5-7.1); PLATELET COUNT 132 X10e3 (140-420); RED BLOOD COUNT 3.19 X10e (3.90-5.60); RED CELL DISTRIBUTION WIDTH 14.8 % (11.0-15.5)
[2016-12-28 05:00] LABS: DIFF IND NO
[2016-12-28 06:23] LABS: ALBUMIN SERUM 3.3 g/dL (3.5-5.0); BILIRUBIN,TOTAL 1.1 mg/dL (0.2-2.0); CALCIUM SERUM 8.3 mg/dL (8.4-10.2); CREATININE SERUM 1.5 mg/dL (0.6-1.4); GLOM FILT RATE Estimated 42.5 mL/min (>60); MAGNESIUM 1.9 mg/dL (1.6-3.0); PHOSPHOROUS 3.5 mg/dL (2.5-4.6); POTASSIUM 4.7 mmol/L (3.5-5.1); PROTEIN TOTAL SERUM 6.5 g/dL (6.0-8.3)
[2016-12-28 11:02] LABS: IRON SERUM 30 ug/dL (45-182); TOTAL IRON BINDING CAPACITY 280 ug/dL (252-460); TRANSFERRIN 200 mg/dL (180-329); TRANSFERRIN SATURATION 11 % (20-50)
[2016-12-28 11:18] LABS: FERRITIN 133 ng/mL (24-336)
[2016-12-28 11:21] LABS: FOLATE (FOLIC ACID) 22.1 ng/mL (>5.8)
[2016-12-29 05:19] LABS: HEMATOCRIT 31.9 % (38.0-50.0); HEMOGLOBIN 10.8 gm/dL (13.0-16.0); MEAN CELL VOLUME 99.1 FL (83-96); MEAN CORPUSCULAR HEMOGLOBIN 33.5 PG (28-34); MEAN CORPUSCULAR HGB CONC 33.8 g/dL (30-36); MEAN PLATELET VOLUME 11.6 FL (6.5-11.5); RED BLOOD COUNT 3.22 X10e (3.90-5.60); RED CELL DISTRIBUTION WIDTH 14.8 % (11.0-15.5); WHITE BLOOD COUNT 7.1 X10e3 (4.0-10.5)
[2016-12-29 06:32] LABS: FERRITIN 138 ng/mL (24-336)
[2016-12-29 06:33] LABS: FOLATE (FOLIC ACID) 20.6 ng/mL (>5.8)
[2016-12-29 06:44] LABS: BUN/CREATININE RATIO 23.33; CALCIUM SERUM 8.5 mg/dL (8.4-10.2); CREATININE SERUM 1.2 mg/dL (0.6-1.4); GLOM FILT RATE Estimated 55.6 mL/min (>60); POTASSIUM 4.5 mmol/L (3.5-5.1)
[2016-12-29 16:55] LABS: MAGNESIUM 1.9 mg/dL (1.6-3.0)
[2016-12-29 17:15] LABS: %MB 1.8 % (0.0-4.0); MB 2.9 ng/ml
[2016-12-29 22:22] LABS: %MB 1.5 % (0.0-4.0); MB 2.3 ng/ml
[2016-12-30 03:32] LABS: HEMATOCRIT 32.4 % (38.0-50.0); MEAN CELL VOLUME 99.8 FL (83-96); MEAN CORPUSCULAR HEMOGLOBIN 33.9 PG (28-34); MEAN PLATELET VOLUME 11.6 FL (6.5-11.5); RED BLOOD COUNT 3.24 X10e (3.90-5.60); RED CELL DISTRIBUTION WIDTH 14.4 % (11.0-15.5); WHITE BLOOD COUNT 8.4 X10e3 (4.0-10.5)
[2016-12-30 03:59] LABS: BUN/CREATININE RATIO 19.37; CALCIUM SERUM 8.6 mg/dL (8.4-10.2); CREATININE SERUM 1.6 mg/dL (0.6-1.4); GLOM FILT RATE Estimated 39.3 mL/min (>60); POTASSIUM 4.3 mmol/L (3.5-5.1)
[2016-12-30 04:33] LABS: %MB 2.1 % (0.0-4.0); MB 3.2 ng/ml
[2016-12-31 05:46] LABS: BUN/CREATININE RATIO 26.42; CALCIUM SERUM 8.6 mg/dL (8.4-10.2); CREATININE SERUM 1.4 mg/dL (0.6-1.4); GLOM FILT RATE Estimated 46.2 mL/min (>60); POTASSIUM 4.2 mmol/L (3.5-5.1)
[2017-01-01 05:03] LABS: HEMATOCRIT 31.9 % (38.0-50.0); HEMOGLOBIN 10.7 gm/dL (13.0-16.0); MEAN CELL VOLUME 100.3 FL (83-96); MEAN CORPUSCULAR HEMOGLOBIN 33.7 PG (28-34); MEAN CORPUSCULAR HGB CONC 33.6 g/dL (30-36); MEAN PLATELET VOLUME 11.5 FL (6.5-11.5); RED BLOOD COUNT 3.18 X10e (3.90-5.60); RED CELL DISTRIBUTION WIDTH 14.4 % (11.0-15.5)
[2017-01-01 06:00] LABS: CREATININE SERUM 1.2 mg/dL (0.6-1.4); GLOM FILT RATE Estimated 55.6 mL/min (>60)
[2017-01-01 06:05] LABS: BUN/CREATININE RATIO 32.5; CALCIUM SERUM 8.6 mg/dL (8.4-10.2); CREATININE SERUM 1.2 mg/dL (0.6-1.4); GLOM FILT RATE Estimated 55.6 mL/min (>60)
[2017-01-02 05:40] LABS: HEMATOCRIT 29.7 % (38.0-50.0); HEMOGLOBIN 10.2 gm/dL (13.0-16.0); MEAN CELL VOLUME 99.3 FL (83-96); MEAN CORPUSCULAR HEMOGLOBIN 34.1 PG (28-34); MEAN CORPUSCULAR HGB CONC 34.4 g/dL (30-36); MEAN PLATELET VOLUME 11.2 FL (6.5-11.5); RED BLOOD COUNT 2.99 X10e (3.90-5.60); RED CELL DISTRIBUTION WIDTH 14.4 % (11.0-15.5); WHITE BLOOD COUNT 7.3 X10e3 (4.0-10.5)
[2017-01-02 06:42] LABS: BUN/CREATININE RATIO 31.81; CALCIUM SERUM 8.6 mg/dL (8.4-10.2); CREATININE SERUM 1.1 mg/dL (0.6-1.4); GLOM FILT RATE Estimated 61.8 mL/min (>60); POTASSIUM 3.9 mmol/L (3.5-5.1)
[2017-01-03 04:59] LABS: HEMATOCRIT 30.8 % (38.0-50.0); HEMOGLOBIN 10.2 gm/dL (13.0-16.0); MEAN CELL VOLUME 100.4 FL (83-96); MEAN CORPUSCULAR HGB CONC 32.9 g/dL (30-36); MEAN PLATELET VOLUME 11.2 FL (6.5-11.5); RED BLOOD COUNT 3.07 X10e (3.90-5.60); RED CELL DISTRIBUTION WIDTH 14.9 % (11.0-15.5); WHITE BLOOD COUNT 7.6 X10e3 (4.0-10.5)
[2017-01-03 06:54] LABS: BUN/CREATININE RATIO 26.66; CALCIUM SERUM 8.7 mg/dL (8.4-10.2); CREATININE SERUM 1.2 mg/dL (0.6-1.4); GLOM FILT RATE Estimated 55.6 mL/min (>60); MAGNESIUM 1.8 mg/dL (1.6-3.0); POTASSIUM 4.2 mmol/L (3.5-5.1)
[2017-01-03 14:38] LABS: URINE SOURCE CATH
[2017-01-03 14:47] LABS: URINE APPEARANCE CLEAR; URINE BLOOD 2+ (NEG); URINE COLOR DK YELLOW; URINE GLUCOSE NEG (NEG); URINE KETONE NEG (NEG); URINE LEUKOCYTE ESTERASE NEG (NEG); URINE NITRATE NEG (NEG); URINE PH 5.5 (5-8); URINE PROTEIN 2+ (NEG); URINE SPECIFIC GRAVITY 1.024 (1.003-1.035)
[2017-01-03 14:49] LABS: URINE BACTERIA AUWI NEG (NEGATIVE); URINE SQUAMOUS EPITHELIAL CELL NONE SEEN /[HPF]; UWBCS1 AUWI 0-2 (0-5)
[2017-01-03 14:50] LABS: URINE BILIRUBIN NEG (NEG)
[2017-01-03 17:20] LABS: ARTERIAL BLD GAS O2 SATURATION 96.1 % (90.0-100.0); ARTERIAL BLOOD GAS CARBOXY HB 0.9 %sat (0.0-9.0); ARTERIAL BLOOD GAS PCO2 38.1 mmHg (35.0-45.0); ARTERIAL BLOOD GAS pH 7.425 (7.350-7.450)
[2017-01-04 04:52] LABS: HEMATOCRIT 29.4 % (38.0-50.0); HEMOGLOBIN 9.7 gm/dL (13.0-16.0); MEAN CORPUSCULAR HEMOGLOBIN 33.3 PG (28-34); MEAN CORPUSCULAR HGB CONC 32.9 g/dL (30-36); MEAN PLATELET VOLUME 11.5 FL (6.5-11.5); RED BLOOD COUNT 2.91 X10e (3.90-5.60); RED CELL DISTRIBUTION WIDTH 14.8 % (11.0-15.5); WHITE BLOOD COUNT 8.1 X10e3 (4.0-10.5)
[2017-01-04 05:32] LABS: ALBUMIN SERUM 2.4 g/dL (3.5-5.0); BILIRUBIN,TOTAL 0.8 mg/dL (0.2-2.0); CALCIUM SERUM 8.3 mg/dL (8.4-10.2); GLOM FILT RATE Estimated 69.3 mL/min (>60); POTASSIUM 4.1 mmol/L (3.5-5.1); PROTEIN TOTAL SERUM 5.4 g/dL (6.0-8.3)
[2017-01-06 08:57] LABS: ARTERIAL BLOOD GAS ALLEN TEST NORMAL; ARTERIAL BLOOD GAS ART SITE LEFT RADIAL; ARTERIAL DRAW? YES
[2017-01-06 08:58] LABS: ARTERIAL BLOOD GAS DELIVERY NASAL CANNULA
== END 2017-01-04 22:24 | DRG 683 ==
LOC: CED 11:13 → CEDOF 14:55 → C3A PCU 15:38 → CED 15:38 → C3A PCU 16:16 → CEDOF 16:16 → C3A PCU 16:16 → CEDOF 12-29 12:41 → C3A PCU 01-04 22:24
PROVIDERS: Emergency Medicine; Family Medicine; Internal Medicine; Internal Medicine Gastroenterology; Internal Medicine Nephrology
PROC: B246YZZ Ultrasonography of Right and Left Heart using Other Contrast (ICD-10-PCS; principal; 2016-12-29)
PROC: 0DB78ZX Excision of Stomach, Pylorus, Via Natural or Artificial Opening Endoscopic, Diagnostic (ICD-10-PCS; 2017-01-01)
PROC: 0DH68UZ Insertion of Feeding Device into Stomach, Via Natural or Artificial Opening Endoscopic (ICD-10-PCS; 2017-01-01 08:33)
PROC: 0DH63UZ Insertion of Feeding Device into Stomach, Percutaneous Approach (ICD-10-PCS; 2017-01-03)
DX: N17.9 Acute kidney failure, unspecified (principal); Q21.1 Atrial septal defect; I48.91 Unspecified atrial fibrillation; R13.12 Dysphagia, oropharyngeal phase; D63.1 Anemia in chronic kidney disease; I73.9 Peripheral vascular disease, unspecified; I12.9 Hypertensive chronic kidney disease with stage 1 through stage 4 chronic kidney disease, or unspecified chronic kidney disease; N18.3 Chronic kidney disease, stage 3 (moderate); E78.5 Hyperlipidemia, unspecified; N40.0 Benign prostatic hyperplasia without lower urinary tract symptoms; Z86.73 Personal history of transient ischemic attack (TIA), and cerebral infarction without residual deficits; K21.9 Gastro-esophageal reflux disease without esophagitis; E53.8 Deficiency of other specified B group vitamins; M13.841 Other specified arthritis, right hand
CPT/HCPCS: 36415; 36600; 71010; 73140; 74230; 76770; 80048; 80053; 80076; 80202; 81003; 82274; 82550; 82553; 82565; 82607; 82728; 82746; 82803; 82947; 83540; 83550; 83735; 83880; 84100; 84443; 84484; 84550; 85025; 85027; 87040; 87077; 87086; 87186; 92526; 92610; 92611; 93005; 93306; 93970; 93971; 94760; 97110; 97116; 97162; 97166; 97530; 97535; 99285; G8978-GP; G8979-GP; G8987-GO; G8988-GO; G8996-GN; G8997-GN; J0690; J1650; J2270; J3370; J3420; J3490

== ENCOUNTER → 2017-01-29 | Outpatient (CLI) | payer MEDICARE ==
[~2017-01-29] MED LIST changes: +AGGRENOX PO; +COZAAR25 MG PO; +LASIX20 MG PO; +NORVASC PO; +PRAVACHOL PO; +PRILOSEC PO; +VITAMIN D35000 UNI1 PO
== END | disposition home or self-care (01) ==
LOC: CRAD 10:00
DX: R13.10 Dysphagia, unspecified (principal); N18.9 Chronic kidney disease, unspecified; Z93.1 Gastrostomy status
CPT/HCPCS: 74230; 92611; G8996-GN; G8997-GN; G8998-GN